=== PATIENT | male | born 1945 | race Caucasian/White ===

== ENCOUNTER 2017-03-31 18:23 | Emergency (ER) | payer OTHER ==
[2017-03-31 18:28] VITALS: TEMP 98.2
--- NOTE | 2017-03-31 18:29 | EDPHY ---
H & P Stated Complaint: AWAKENED AT 0530 WITH R SIDED FACIAL PARALYSIS HPI/ROS: HPI CHIEF COMPLAINT: Right sided facial droop HISTORY OF PRESENT ILLNESS: This patient very pleasant 71-year-old male no significant medical history does not take any daily medications he presents emergency room with right-sided facial droop. He states he noticed around 530 this morning when he got up that his lip did not feel right on the right side. He noticed throughout the day that his eye was irritating him he noticed that he had trouble closing his eye, also noticed that he had trouble drinking and felt as if the right side of his mouth was week. Denies any focal numbness or tingling denies any other focal weakness, denies chest pain shortness of breath denies headache. No history of Perry's palsy or stroke. No history of cardiac disease. No new medications. He denies headache. Past Medical History: Denies significant medical history Past Surgical History: Denies significant surgical history Social History: Denies daily use drugs alcohol tobacco products Family History: Noncontributory ROS REVIEW OF SYSTEMS: A comprehensive 10 point review of systems is otherwise negative aside from elements mentioned in the history of present illness. Exam Constitutional triage nursing summary reviewed, vital signs reviewed, awake/ alert. Eyes normal conjunctivae and sclera, EOMI, PERRLA. HENT normal inspection, atraumatic, moist mucus membranes, no epistaxis, neck supple/ no meningismus, no raccoon eyes. Respiratory clear to auscultation bilaterally, normal breath sounds, no respiratory distress, no wheezing. Cardiovascular rate normal, regular rhythm, no murmur, no edema, distal pulses normal. Gastrointestinal soft, non-tender, no rebound, no guarding, normal bowel sounds, no distension, no pulsatile mass. Genitourinary no CVA tenderness. Musculoskeletal no midline vertebral tenderness, full range of motion, no calf swelling, no tenderness of extremities, no meningismus, good pulses, neurovascularly intact. Skin pink, warm, & dry, no rash, skin atraumatic. Neurologic right facial droop on exam. This involves the upper forehead, and right-sided his face, sensation intact. He has a right-sided mouth droop, trouble fully closing his right eye, and trouble raising his right eyebrow. This consistent with a cranial nerve 7 deficit significant for Perry's palsy. Otherwise is neurological exam is unremarkable. awake, alert and oriented x 3, AAOx3, moves all 4 extremities equally, motor intact, sensory intact, CN II-XII intact, normal cerebellar, normal vision, normal speech. There are no lesions to indicate herpes. No Frias sign. Psychiatric normal mood/affect. Heme/Lymph/Immune no lymphadenopathy. Differential Diagnosis: Includes includes but is not limited to in a particular order: Perry's palsy, brain tumor, herpes zoster. Medical Decision Making: Plan for this patient check basic blood work, CT head without contrast for brain tumor. Re-evaluation: 1843: Will consult Neurology. I discussed at length with this patient his at bedside that this is Perry's palsy given his right-sided facial paralysis. Upper face and lower face. This patient has a right facial droop, also has trouble closing his right eye, also noted he cannot fully elevate his eyebrow. This is consistent with a right-sided facial droop consistent with Perry's palsy. There is no herpetic lesions. He has no conjunctival injection. Plan for this patient will start this patient on prednisone 60 mg x5 days, acyclovir. Patient will need to do eyedrops keep his eye lube. Tape at night. Close neurology and ophthalmology follow-up. I went over this extensively with the patient this been a great deal time explaining bowels palsy possible causes and to watch out for herpetic lesions. Follow-up Ophthalmology closely. Follow up Neurology. He understands understands. 1857: I spoke with Dr. Speedy Montes with Neurology. He will be glad to see this patient follow up outpatient. He agrees that given the clinical exam this is most likely Perry's palsy. Agrees with prednisone, acyclovir. Eyedrops. Taping eye shut at night. Ophthalmology follow-up. Neurology follow-up. 1916: CT scan of the head without IV contrast The results of the study are negative for acute bleed, tumor, stroke.. The study was read by Dr. Lion. I viewed the images myself on the PACS system. 1928: Updated this patient on his blood work and CT scan. Recommend close follow-up with Neurology as well as Ophthalmology. Acyclovir, prednisone. Patient understands updated as well. Understands. Return emergency room if there is any further symptoms questions or concerns. Source: Patient - Personal History Current Tetanus/Diphtheria Vaccine: Unsure - Medical/Surgical History Hx Asthma: No Hx Chronic Respiratory Disease: No Hx Diabetes: No Hx Cardiac Disease: No Hx Renal Disease: No Hx Cirrhosis: No Hx Alcoholism: No Hx HIV/AIDS: No Hx Splenectomy or Spleen Trauma: No Other PMH: DENIES - Social History Smoking Status: Never smoked Constitutional: Initial Vital Signs Temperature (C) 36.8 C 03/31/17 18:26 Heart Rate 83 03/31/17 18:26 Respiratory Rate 18 03/31/17 18:26 Blood Pressure 159/94 H 03/31/17 18:26 O2 Sat (%) 93 03/31/17 18:26 O2 Delivery Mode Room Air Allergies/Adverse Reactions: Sulfa (Sulfonamide Antibiotics) Allergy (Mild, Verified 03/31/17 18:25) Penicillins Allergy (Unknown, Verified 03/31/17 18:25) Home Medications: Medication Instructions Recorded Acyclovir [Zovirax] 800 mg PO 5XD #35 tab 03/31/17 predniSONE 60 mg PO DAILY #15 tab 03/31/17 Medical Decision Making - Data Points Laboratory Results: Laboratory Results 03/31/17 18:51 03/31/17 18:51 03/31/17 03/31/17 18:51 18:51 WBC 7.98 10^3/uL 10^3/uL (3.80-9.50) RBC 4.86 10^6/uL 10^6/uL (4.40-6.38) Hgb 15.4 g/dL g/dL (13.7-17.5) Hct 45.3 % % (40.0-51.0) MCV 93.2 fL fL (81.5-99.8) MCH 31.7 pg pg (27.9-34.1) MCHC 34.0 g/dL g/dL (32.4-36.7) RDW 13.2 % % (11.5-15.2) Plt Count 216 10^3/uL 10^3/uL (150-400) MPV 9.0 fL fL (8.7-11.7) Neut % (Auto) 62.7 % % (39.3-74.2) Lymph % (Auto) 22.9 % % (15.0-45.0) [place] % (Auto) 10.4 % % (4.5-13.0) Eos % (Auto) 2.8 % % (0.6-7.6) Baso % (Auto) 0.9 % % (0.3-1.7) Nucleat RBC Rel Count 0.0 % % (0.0-0.2) Absolute Neuts (auto) 5.01 10^3/uL 10^3/uL (1.70-6.50) Absolute Lymphs (auto) 1.83 10^3/uL 10^3/uL (1.00-3.00) Absolute Monos (auto) 0.83 10^3/uL H 10^3/uL (0.30-0.80) Absolute Eos (auto) 0.22 10^3/uL 10^3/uL (0.03-0.40) Absolute Basos (auto) 0.07 10^3/uL 10^3/uL (0.02-0.10) Absolute Nucleated RBC 0.00 10^3/uL 10^3/uL (0-0.01) Immature Gran % 0.3 % % (0.0-1.1) Immature Gran # 0.02 10^3/uL 10^3/uL (0.00-0.10) Sodium 139 mEq/L mEq/L (134-144) Potassium 4.2 mEq/L mEq/L (3.5-5.2) Chloride 104 mEq/L mEq/L (97-110) Carbon Dioxide 24 mEq/l mEq/l (22-31) Anion Gap 11 mEq/L mEq/L (8-16) BUN 23 mg/dL mg/dL (7-23) Creatinine 1.2 mg/dL mg/dL (0.7-1.3) Estimated GFR 60 Glucose 87 mg/dL mg/dL (70-100) Calcium 10.4 mg/dL mg/dL (8.5-10.4) Departure - Departure Disposition: Home, Routine, Self-Care Clinical Impression: Perry's palsy Condition: Good Instructions: Perry Palsy (ED) Additional Instructions: 1. You been diagnosed with Perry's palsy. 2. Please keep her eyelid shut at night taped closed. 3. Please use eyedrops to keep her eye moist during the day. 4. Watch out for blisters on her nose and around your eye. If you see this see Ophthalmology immediately. 5. Take your prescriptions as prescribed. Referrals: NONE *PRIMARY CARE P,. [Primary Care Provider] - As per Instructions Speedy Montes MD [Medical Doctor] - As per Instructions Samuel Hassan MD [Medical Doctor] - As per Instructions Prescriptions: Acyclovir [Zovirax] 800 mg PO 5XD #35 tab predniSONE 60 mg PO DAILY #15 tab
[2017-03-31 19:01] LABS: % IMMATURE GRANULYOCYTES 0.3 % (0.0-1.1); ABSOLUTE IMMATURE GRANULOCYTES 0.02 10^3/uL (0.00-0.10); ADD DIFF? NO; ADD MORPH? NO; ADD SCAN? NO; ATYPICAL LYMPHOCYTE FLAG 10 (0-99); FRAGMENT RBC FLAG 0 (0-99); HEMATOCRIT 45.3 % (40.0-51.0); HEMOGLOBIN 15.4 g/dL (13.7-17.5); LEFT SHIFT FLG 0 (0-99); LIPEMIA HEMOLYSIS FLAG 90 (0-99); MEAN CELL HEMOGLOBIN 31.7 pg (27.9-34.1); MEAN CELL VOLUME 93.2 fL (81.5-99.8); PLATELET CLUMPS FLAG 10 (0-99); PLATELET COUNT 216 10^3/uL (150-400); RED BLOOD CELL COUNT 4.86 10^6/uL (4.40-6.38); RED CELL DISTRIBUTION WIDTH 13.2 % (11.5-15.2)
[2017-03-31 19:18] LABS: ANION GAP 11 mEq/L (8-16); CALCIUM 10.4 mg/dL (8.5-10.4); CARBON DIOXIDE 24 mEq/l (22-31); CHLORIDE 104 mEq/L (97-110); CREATININE 1.2 mg/dL (0.7-1.3); GLOMERULAR FILTRATION RATE 60; GLUCOSE 87 mg/dL (70-100); POTASSIUM 4.2 mEq/L (3.5-5.2); SODIUM 139 mEq/L (134-144)
[2017-03-31 20:00] VITALS: BP 138/86; PULSE 76; RESP 16; O2SAT 92
== END 2017-03-31 19:59 | disposition home or self-care (01) ==
DX: G51.0 Bell's palsy (principal)

== ENCOUNTER 2017-06-26 15:52 | Emergency (ER) | payer OTHER ==
[2017-06-26 15:57] VITALS: RESP 18; O2SAT 94
[2017-06-26] MEDS ORDERED: OXYCODONE/APAP 5/325 TAB PO ONE (16:33)
--- NOTE | 2017-06-26 16:40 | EDPHY ---
H & P Stated Complaint: Low back pain since Saturday;seen at yesterday Time Seen by Provider: 06/26/17 16:17 HPI/ROS: CHIEF COMPLAINT: Left lumbar back pain x3 days HISTORY OF PRESENT ILLNESS: 71-year-old male complaining of acute left lumbar back pain for the past 3 days. He describes it starting 3 days ago when he was leaning over to clean the sap off of the vehicle and when he stood up again he felt immediate, sudden onset of acute left lumbar paraspinous back pain. The pain is reproducible with standing fully erect better if sitting flexed at the waist. No radiculopathy. No incontinence. No retention. No saddle anesthesia. No direct trauma or fall. No abdominal pain. No fever or chills. No flu-like symptoms. The patient went to an urgent care today was given prescription for lidocaine patches and unknown a muscle relaxant which she states have not been alleviating his symptoms. He has a new patient appointment at [facility] in 5 days. PRIMARY CARE PROVIDER:no PCP REVIEW OF SYSTEMS: A ten point review of systems was performed and is negative with the exception of the items mentioned in the HPI PAST MEDICAL & SURGICAL HISTORY: No pertinent medical or surgical history SOCIAL HISTORY: . Owns a car maintenance business PHYSICAL EXAM (Prior to examination, patient consented to physical exam, hands were washed and my usual and customary physical exam procedures followed) 1) GENERAL: Well-developed, well-nourished, alert and oriented. Appears to be in no acute distress. 2) HEAD: Normocephalic, atraumatic 3) HEENT: Pupils equal, round, reactive to light bilaterally. Sclera anicteric. Nasopharynx, oropharynx, clear, no lesions. 4) NECK: Full range of motion, no meningeal signs. 5) LUNGS: Clear auscultation bilaterally, no wheezes, no rhonchi, no retractions. 6) HEART: Regular rate and rhythm, no murmur, no heave, no gallop. 7) ABDOMEN: No guarding, no rebound, no focal tenderness, negative McBurney's, negative De La Fuente's, negative Rovsing's, negative peritoneal sign, 8) MUSCULOSKELETAL: Moving all extremities, no focal areas of tenderness, no obvious trauma. No peripheral edema or discoloration. 9) BACK: tender to palpation left paraspinous muscle. No CVA tenderness, no midline vertebral tenderness, no fluctuance, no step-off, no obvious trauma, no visual or palpable abnormality. Reproducible pain laying fully supine or standing fully erect. Relieved if sitting flex at the waist. Patella, Achilles reflexes intact to bilateral strength 5/5 10) SKIN: No rash, no petechiae. 11) NEURO: Awake, alert, and oriented to person, place and time. Answers questions appropriately. There were no obvious focal neurologic abnormalities. No cerebellar dysfunction. Upper and lower extremities bilaterally with strength 5 / 5, reflexes 2+.. DIFFERENTIAL DIAGNOSIS: In no particular order, including but not limited to, fracture, sprain/strain, cauda equina, spinal infectious etiology. MEDICAL DECISION MAKING 6:14 p.m.: This patient was re-evaluated with serial examinations and case discussed with secondary supervising physician Dr. Simón Nagel. X-ray obtained lumbar spine which showed no definitive acute osseous abnormality. He was given oral analgesia and notes improvement in symptoms although still remains symptomatic with certain positions. I had a lengthy discussion with the patient , explained him that I have a lower index of suspicion for cauda equina, epidural abscess, epidural hematoma, lumbar myositis, diskitis, as the patient is neurologically intact in the lower extremities, has patella and Achilles reflexes intact and equal bilaterally, has no neurologic deficits, no incontinence, no retention, no midline pain, no fluctuance, afebrile, no flulike symptoms. Pain may be secondary to muscular strain, may be secondary to discogenic etiology. Doubt nephrogenic etiology absence of urinary complaints or flank pain. At this point I do not identify definitive indication for emergent MRI, however patient may necessitate this on an outpatient basis. He has an appointment at [facility] on Saturday (today is Saturday). I recommend he keep this appointment . In the meantime if he develops new or worsening symptoms recommend return to the emergency department. He feels comfortable being discharged. Given oral analgesia prescription. - Personal History Current Tetanus Diphtheria and Acellular Pertussis (TDAP): Unsure - Medical/Surgical History Hx Asthma: No Hx Chronic Respiratory Disease: No Hx Diabetes: No Hx Cardiac Disease: No Hx Renal Disease: No Hx Cirrhosis: No Hx Alcoholism: No Hx HIV/AIDS: No Hx Splenectomy or Spleen Trauma: No Other PMH: Perry's Palsy - Social History Smoking Status: Former smoker Constitutional: Initial Vital Signs Temperature (C) 36.8 C 06/26/17 15:53 Heart Rate 73 06/26/17 15:53 Respiratory Rate 18 06/26/17 15:53 Blood Pressure 149/84 H 06/26/17 15:53 O2 Sat (%) 94 06/26/17 15:53 O2 Delivery Mode Room Air Allergies/Adverse Reactions: Sulfa (Sulfonamide Antibiotics) Allergy (Mild, Verified 06/26/17 15:53) Penicillins Allergy (Unknown, Verified 06/26/17 15:53) Home Medications: Medication Instructions Recorded Cyclobenzaprine [Flexeril 10 MG 10 mg PO 06/26/17 (*)] Lidocaine [Lidoderm] 1 each TP 06/26/17 oxyCODONE/APAP 5/325 [Percocet 1 tab PO Q6 #14 tab 06/26/17 5/325] Medical Decision Making - Diagnostics Imaging: I viewed and interpreted images myself - Data Points Medications Given: Discontinued Medications Oxycodone/Acetaminophen (Percocet 5/325) 1 tab PO EDNOW ONE Stop: 06/26/17 16:34 Last Admin: 06/26/17 16:37 Dose: 1 tab Departure - Departure Disposition: Home, Routine, Self-Care Clinical Impression: Acute lumbar back pain Qualifiers: Back pain laterality: left Sciatica presence: without sciatica Qualified Code(s ): M54.5 - Low back pain Condition: Good Instructions: Acute Low Back Pain (ED) Additional Instructions: Seek medical attention if you develop new or worsening pain, if you develop bladder or bowel dysfunction, numbness around your perineum, foot drop, or any other symptoms that concern you. Keep your appointment at [facility] on Saturday Referrals: Keep, your [facility] appointment on Saturday [Other] - As per Instructions Prescriptions: oxyCODONE/APAP 5/325 [Percocet 5/325] 1 tab PO Q6 #14 tab
[2017-06-26 18:29] VITALS: BP 146/98; PULSE 70; TEMP 98.1
== END 2017-06-26 18:29 | disposition home or self-care (01) ==
DX: M54.5 Low back pain (principal); Z87.891 Personal history of nicotine dependence

== ENCOUNTER 2019-04-14 20:26 | Emergency (ER) | payer OTHER | END 2019-04-15 00:38 | disposition home or self-care (01) ==